=== PATIENT | male | born 1930 | race Caucasian/White ===

== ENCOUNTER 2018-05-12 18:08 | Emergency (ER) | payer MEDICARE, OTHER ==
[2018-05-12 19:30] LABS: INR-International Normal Ratio 2.2; PTT 32.7 SEC (22.9-36.1); Prothrombin Time 24.2 SEC (12.0-14.7)
== END 2018-05-12 21:23 | disposition home or self-care (01) ==
LOC: ERS 18:08
DX: H92.21 Otorrhagia, right ear (principal); I48.91 Unspecified atrial fibrillation; Z79.899 Other long term (current) drug therapy; E11.9 Type 2 diabetes mellitus without complications
CPT/HCPCS: 36415; 85610; 85730; 99283